=== PATIENT | male | born 1960 | race Caucasian/White ===

== ENCOUNTER → 2023-10-07 | Outpatient (CLI) | payer BC ==
[2023-10-07 15:40] LABS: HGB 13.9 gm/dL (13.0-17.5); Hypochromasia Marked; MCHC 30.9 g/dL (31.0-37.0); MCV 100.2 fL (80.0-100.0); Mean Platelet Volume 10.9; RBC 4.49 m/uL (4.30-5.90); RDW 13.3 % (11.5-15.5); WBC 4.7 k/uL (3.8-10.6)
[2023-10-07 17:15] LABS: Platelet Count 91 k/uL (150-450)
[2023-10-08 01:56] LABS: Appearance,Urine Clear (Clear); Bilirubin,Urine Negative (Negative); Blood,Urine Negative (Negative); Color,Urine Yellow (Yellow); Ketones,Urine Negative (Negative); Nitrite,Urine Negative (Negative); Specific Gravity,Urine 1.035 (1.001-1.030); Urobilinogen,Urine 0.2
[2023-10-08 04:20] LABS: BUN/Creat Ratio 21.82 Ratio (12.00-20.00); Calcium 9.9 mg/dL (8.7-10.3); Chloride 105 mmol/L (96-109); Glucose 177 mg/dL (70-110); Potassium 4.3 mmol/L (3.5-5.5); Sodium 143 mmol/L (135-145)
== END | disposition home or self-care (01) ==
LOC: LABPAT 13:10
PROVIDERS: ATTEND Urology
DX: Z01.812 Encounter for preprocedural laboratory examination (principal); N40.1 Benign prostatic hyperplasia with lower urinary tract symptoms; N13.8 Other obstructive and reflux uropathy; R35.0 Frequency of micturition
CPT/HCPCS: 80048; 81003; 85027; 87086

== ENCOUNTER 2023-10-13 07:34 | Day surgery (SDC) | payer BC ==
[2023-10-12 11:29] VITALS: BMI 30.8
[~2023-10-13 07:34] MED LIST: DEXAMETHASONE SOD PHOSPHATE 4 MG/ML 1 ML VIAL IV ONE; HYDROmorphone 0.5 MG/0.5 ML SYRINGE IVP PRN; LACTATED RINGERS 1,000 ML IV SCH; LIDOCAINE 1% (10MG/ML) FOR IV START INTRADERMA PRN; MIDAZOLAM 2 MG/2 ML VIAL IV PRN; ONDANSETRON 4 MG/2 ML VIAL IVP ONE
--- NOTE | 2023-10-13 07:46 | P.HPIHPCON ---
History of Present Illness H&P Date: 10/13/23 Chief Complaint: BPH This is a 63-year-old male with history of BPH having urinary symptoms despite medical therapy. He underwent a cystoscopy that showed evidence of an obstructive prostate. Option of a Urolift versus TURP was discussed with him in detail. Discussed risk of bleeding, infection, urinary incontinence, persistent symptoms. He understood all the risk and agreed to proceed Consent for Procedure: I have explained the operation/procedure to the patient, including the risks, benefits, side effects, alternative therapies (including not receiving the proposed treatment or service), the likelihood of the patient achieving his/her goals, and potential recuperation problems for the procedure/sedation/analgesia, as well as any blood products, if indicated. I also explained to the patient the risks, benefits and side effects of the alternatives, as well as the risks related to not receiving the proposed procedure, care, treatment, or services. Past Medical History Past Medical History: Diabetes Mellitus, Hypertension, Neurologic Disorder, Prostate Disorder Additional Past Medical History / Comment(s): "Slight kidney damage". Lower back and bilateral shoulder pain. Enlarged prostate. Neuropathy. History of Any Multi-Drug Resistant Organisms: None Reported Past Surgical History: Cholecystectomy, Orthopedic Surgery Additional Past Surgical History / Comment(s): Right leg surgery. Past Anesthesia/Blood Transfusion Reactions: No Reported Reaction Past Psychological History: No Psychological Hx Reported Smoking Status: Former smoker Past Alcohol Use History: Occasional Additional Past Alcohol Use History / Comment(s): Quit smoking 15+ yrs ago. Past Drug Use History: None Reported - Past Family History Mother Family Medical History: Cancer Additional Family Medical History / Comment(s): Bone cancer. Sister(s) Family Medical History: Cancer Additional Family Medical History / Comment(s): 3 sisters, all had some type of female cancer. Medications and Allergies Home Medications Medication Instructions Recorded Confirmed Type Cinnamon Bark [Cinnamon] 500 mg PO DAILY 10/12/23 10/12/23 History DULoxetine HCL [Cymbalta] 60 mg PO HS 10/12/23 10/12/23 History Empagliflozin [Jardiance] 25 mg PO DAILY 10/12/23 10/12/23 History Ibuprofen 800 mg PO BID 10/12/23 10/12/23 History Losartan [Cozaar] 50 mg PO QAM 10/12/23 10/12/23 History Semaglutide [Ozempic] 1 mg SQ ALEXIS 10/12/23 10/12/23 History Tamsulosin HCl [Flomax] 0.4 mg PO DAILY 10/12/23 10/12/23 History Vitamin B-12 (Unknown Dose) 1 tab PO DAILY 10/12/23 10/12/23 History Vitamin C (Unknown Dose) 1 tab PO DAILY 10/12/23 10/12/23 History Vitamin D3 (Unknown Dose) 1 tab PO DAILY 10/12/23 10/12/23 History metFORMIN HCL 1,000 mg PO DAILY 10/12/23 10/12/23 History tadalafiL 5 mg PO DAILY 10/12/23 10/12/23 History Allergies Allergy/AdvReac Type Severity Reaction Status Date / Time No Known Allergies Allergy Verified 10/12/23 10:55 Surgical - Exam - General no distress, no pain - Eyes normal ocular movement, no pale - ENT normal nares, normal mucosa - Respiratory normal expansion, normal respiratory effort - Abdomen Abdomen: soft, non tender - Psychiatric oriented to time, oriented to person, oriented to place Assessment and Plan Assessment: OR for Urolift
[2023-10-13 08:29] LABS: Glucose,Whole Blood 185 mg/dL (70-110)
[2023-10-13 08:53] VITALS: RESP 16
[2023-10-13] MEDS ORDERED: SUCCINYLCHOLINE CHLORIDE 200 MG/10 ML VIAL IV ONE (09:50)
[2023-10-13] MEDS ORDERED: LIDOCAINE 1% INJ 10MG/ML (20 ML MDV) ONE (09:50)
[2023-10-13] MEDS ORDERED: MIDAZOLAM 2 MG/2 ML VIAL ONE (09:50)
[2023-10-13] MEDS ORDERED: PROPOFOL 10 MG/ML 20 ML VIAL IV ONE (09:50)
[2023-10-13] MEDS ORDERED: fentaNYL (PF) 50 MCG/ML 2 ML AMP ONE (09:50)
[2023-10-13] MEDS ORDERED: LACTATED RINGERS 1,000 ML IV ONE (10:31)
--- NOTE | 2023-10-13 10:55 | P.OP ---
Date of Procedure: 10/13/23 Preoperative Diagnosis: BPH Postoperative Diagnosis: Same Procedure(s) Performed: Urolift X7 Implants: 6 urolift implanted, one urolift retracted due to bone strike Anesthesia: MARILIA Surgeon: Seth Torres Estimated Blood Loss (ml): 10 Pathology: none sent Condition: stable Indications for Procedure: This is a 63-year-old male with history of BPH having urinary symptoms despite medical therapy. He underwent a cystoscopy that showed evidence of an obstructive prostate. Option of a Urolift versus TURP was discussed with him in detail. Discussed risk of bleeding, infection, urinary incontinence, persistent symptoms. He understood all the risk and agreed to proceed Description of Procedure: Patient was brought to the operating room, general anesthesia was induced. He was prepped and draped in sterile fashion and placed in dorsal lithotomy position. Cystoscopy fitted with 20-Irish sheath was inserted per urethra, cystoscopy was performed which showed no abnormality within the bladder, of note patient had bilateral obstructive lateral lobes. Attention was then carried to the urolift implants. A total o 7 implants were fired., One of the implant on the left was retracted due to bone strike, in total 3 were placed on the right side, and 3 on the left side. Implants were placed distal to the bladder neck, but proximal to the Veru. Repeat cystoscopy showed no evidence of implant perforation into the bladder. Repeat cystoscopy also demonstrated an open anterior channel within the prostate. There was no evidence of bleeding, bladder was emptied at end of the case. Patient tolerated the procedure well was taken to PACU in stable condition,.
[2023-10-13 11:02] VITALS: TEMP 97.2
[2023-10-13 13:11] VITALS: BP 131/75; PULSE 65
== END 2023-10-13 13:01 | disposition home or self-care (01) ==
LOC: OR 07:34
PROVIDERS: ATTEND Urology
DX: N40.0 Benign prostatic hyperplasia without lower urinary tract symptoms (principal); I10 Essential (primary) hypertension; Z90.79 Acquired absence of other genital organ(s); Z79.899 Other long term (current) drug therapy
CPT/HCPCS: 52441; L8699; J2250; J0330; J1100; J0690; J2405; J2001; J3010; J2704